=== PATIENT | female | born 1945 | race Caucasian/White ===

== ENCOUNTER 2020-09-25 14:42 | Observation (INO) | payer MEDICARE ==
[2020-09-25] MEDS ORDERED: Acetaminophen 325 MG TAB PO PRN (17:38)
[2020-09-25] MEDS ORDERED: Senokot S 8.6-50 MG TAB PO PRN (17:38)
[2020-09-25] MEDS ORDERED: hydrALAZINE 20 MG/ML VIAL SLOW IVP PRN (17:46)
[2020-09-25 18:12] VITALS: BMI 27.8
[2020-09-25] MEDS ORDERED: Lisinopril 10 MG TAB PO SCH (18:15)
[2020-09-25] MEDS ORDERED: cloNIDine 0.1 MG TAB PO PRN (18:54)
[2020-09-25] MEDS ORDERED: Benzonatate 100 MG CAP PO PRN (18:56)
[2020-09-25] MEDS ORDERED: diphenhydrAMINE 25 MG CAP PO PRN (18:57)
[2020-09-25] MEDS: ALPRAZolam 0.25 MG TAB PO SCH (20:17)
[2020-09-25] MEDS: guaiFENesin ER 600 MG TAB PO SCH (20:17)
[2020-09-25] MEDS ORDERED: Famotidine 20 MG TAB PO SCH (21:00)
[2020-09-25 21:31] LABS: Troponin I 0.013 ng/mL (< 0.028)
[2020-09-26 02:54] LABS: SARS-CoV-2 PCR by NAA Not Detected (NotDetected)
[2020-09-26 04:18] LABS: #Basophils 0.1 thou/uL (0.0-0.2); #Eosinphils 0.5 thou/uL (0.0-0.7); #Lymphocytes 2.8 thou/uL (1.20-3.40); #Monocytes 0.7 thou/uL (0.11-0.59); #Neutrophils 4.7 thou/uL (1.40-6.50); %Basophils 1.4 % (0.0-1.0); %Lymphocytes 31.8 % (21.0-51.0); %Monocytes 8.1 % (0.0-10.0); %Neutrophils 52.7 % (42.0-75.0); Hemoglobin 13.3 g/dL (12.0-16.0); Mean Corpuscular HGB CONC 32.4 g/dL (32.0-36.0); Mean Corpuscular Hemoglobin 28.9 pg (27.0-31.0); Mean Platelet Volume 8.7 fL (7.4-10.4); Platelet Count 270 thou/uL (130-400); RBC Distribution Width 12.6 % (11.5-14.5); Red Blood Cell (RBC) Count 4.62 mill/uL (4.20-5.40); White Blood Cell (WBC) Count 8.8 thou/uL (4.8-10.8)
[2020-09-26 04:41] LABS: ALT (SGPT) 37 U/L (8-55); AST (SGOT) 24 U/L (5-34); Albumin 3.4 g/dL (3.4-4.8); Alkaline Phosphatase 129 U/L (40-110); Anion Gap 13 mmol/L (10-20); BUN (Urea Nitrogen) 11 mg/dL (9.8-20.1); Bilirubin, Total 0.5 mg/dL (0.2-1.2); Calc. Creatinine Clearance 83 mL/min (70-130); Calcium 8.7 mg/dL (7.8-10.44); Carbon Dioxide 27 mmol/L (23-31); Chloride 104 mmol/L (98-107); Globulin 3.1 g/dL (2.4-3.5); Glucose 91 mg/dL (83-110); Potassium 3.9 mmol/L (3.5-5.1); Protein, Total 6.5 g/dL (5.8-8.1); Sodium 140 mmol/L (136-145)
[2020-09-26] MEDS ORDERED: Loratadine 10 MG TAB PO SCH (09:00)
[2020-09-26] MEDS ORDERED: Lisinopril 10 MG TAB PO SCH (09:00)
[2020-09-26] MEDS ORDERED: Amlodipine 5 MG TAB PO SCH (09:00)
[2020-09-26] MEDS ORDERED: Enoxaparin Sodium 40 MG/0.4 ML SYRINGE SC SCH (09:00)
[2020-09-26] MEDS: ALPRAZolam 0.25 MG TAB PO SCH (09:20)
[2020-09-26] MEDS: guaiFENesin ER 600 MG TAB PO SCH (09:21)
[2020-09-26 16:39] VITALS: BP 172/94; TEMP 98
== END 2020-09-26 16:45 | disposition home or self-care (01) ==
LOC: INTOOBSV 17:28 → 2NO 17:28
PROVIDERS: ADMIT Student in an Organized Health Care Education/Training Program; ATTEND Family Medicine
DX: I16.0 Hypertensive urgency (principal); J98.6 Disorders of diaphragm; I10 Essential (primary) hypertension; J30.9 Allergic rhinitis, unspecified; R51.9 Headache, unspecified; R05 Cough; Z20.822 Contact with and (suspected) exposure to COVID-19; Z87.891 Personal history of nicotine dependence
CPT/HCPCS: 80053; 84484; 85025; 90732; 96372; 96374; 97139; G0009; G0378 ×2; U0003; U0005; 36415; 87635; 90471; J0360; J1650

== ENCOUNTER 2021-07-08 16:12 | Emergency (ER) | payer MEDICARE ==
[2021-07-08 19:22] LABS: #Eosinphils 0.2 thou/uL (0.0-0.7); #Lymphocytes 2.6 thou/uL (1.20-3.40); #Monocytes 0.6 thou/uL (0.11-0.59); #Neutrophils 3.3 thou/uL (1.40-6.50); %Basophils 0.4 % (0.0-1.0); %Eosinophils 2.9 % (0.0-10.0); %Lymphocytes 38.8 % (21.0-51.0); %Monocytes 9.2 % (0.0-10.0); %Neutrophils 48.7 % (42.0-75.0); Hemoglobin 13.9 g/dL (12.0-16.0); Mean Corpuscular HGB CONC 33.6 g/dL (32.0-36.0); Mean Corpuscular Hemoglobin 29.6 pg (27.0-31.0); Mean Corpuscular Volume 88.1 fL (78.0-98.0); Mean Platelet Volume 7.9 fL (7.4-10.4); Platelet Count 231 thou/uL (130-400); Red Blood Cell (RBC) Count 4.71 mill/uL (4.20-5.40); White Blood Cell (WBC) Count 6.7 thou/uL (4.8-10.8)
[2021-07-08 19:40] LABS: ALT (SGPT) 38 U/L (8-55); AST (SGOT) 34 U/L (5-34); Albumin 3.8 g/dL (3.4-4.8); Alkaline Phosphatase 120 U/L (40-110); Anion Gap 15 mmol/L (10-20); BUN (Urea Nitrogen) 17 mg/dL (9.8-20.1); Bilirubin, Total 0.4 mg/dL (0.2-1.2); Calc. Creatinine Clearance 0 mL/min (70-130); Calcium 9.6 mg/dL (7.8-10.44); Carbon Dioxide 29 mmol/L (23-31); Chloride 100 mmol/L (98-107); Glucose 96 mg/dL (83-110); Potassium 4.5 mmol/L (3.5-5.1); Protein, Total 6.8 g/dL (5.8-8.1); Sodium 139 mmol/L (136-145)
== END 2021-07-08 21:10 | disposition home or self-care (01) ==
LOC: ERS 16:12
DX: U07.1 COVID-19 (principal); J32.1 Chronic frontal sinusitis; I10 Essential (primary) hypertension; Z87.891 Personal history of nicotine dependence; Z79.899 Other long term (current) drug therapy
CPT/HCPCS: 36415; 80053; 83880; 84484; 85025; 93005